=== PATIENT | male | born 1970 | race Caucasian/White ===

== ENCOUNTER → 2017-08-26 | Outpatient (CLI) | payer BC ==
[~2017-08-26] MED LIST: ANUSOL-HC25 MG RC; AUGMENTIN 875 M1 TAB PO; CELEXA20 MG PO; CLARITIN10 MG PO; COMBIVENT1 ARO IH; DAYPRO600 M1 PO; GLYBURIDE2.5 MG PO; LISINOPRIL10 MG PO; LOVASTATIN40 MG PO; MEDROL DOSEPAK4 MG PO; METFORMIN500 MG PO; ZITHROMAX Z PA250 MG PO; ZOFRAN4 MG PO
[2017-08-26 08:26] LABS: ALBUMIN 3.6 gm/dl (3.1-4.5); ALKALINE PHOSPHATASE 98 U/L (45-117); BUN 19 mg/dl (7-24); CHLORIDE 105 mmol/L (98-107); CHOLESTEROL 189 mg/dL (<200); CREATININE 0.93 mg/dL (0.70-1.30); HDL CHOLESTEROL 31 mg/dl (40-60); LDL CHOLESTEROL 108 mg/dL (9-159); POTASSIUM 4.7 mmol/L (3.5-5.1); SGOT/AST 13 IU/L (3-35); SGPT/ALT 32 U/L (12-78); SODIUM 136 mmol/L (136-145); TOTAL PROTEIN 7.4 gm/dL (6.4-8.2); TRIGLYCERIDES 250 mg/dl (<150); VLDL CHOLESTEROL 50 mg/dL (6-40)
== END | disposition home or self-care (01) ==
LOC: LAB 07:25
DX: I10 Essential (primary) hypertension (principal); E11.9 Type 2 diabetes mellitus without complications; E78.00 Pure hypercholesterolemia, unspecified

== ENCOUNTER → 2018-05-06 | Outpatient (CLI) | payer BC ==
[~2018-05-06] MED LIST changes: +MOBIC7.5 MG PO
[2018-05-06 18:43] LABS: HEMATOCRIT 42.9 % (42.0-52.0); HEMOGLOBIN 14.1 g/dl (14.0-18.0); MEAN CELL VOLUME 91.3 fl (80.0-94.0); MEAN CORPUSCULAR HGB CONC 32.9 g/dl (33.0-37.0); MEAN PLATELET VOLUME 8.7 fl (9.6-12.3); RED BLOOD COUNT 4.7 10*6/uL (4.50-5.90); RED CELL DISTRI WIDTH 13.8 % (0-14.5); WHITE BLOOD COUNT 15.6 10*3/uL (4.8-10.8)
[2018-05-06 19:13] LABS: ALBUMIN 3.4 gm/dl (3.1-4.5); ALKALINE PHOSPHATASE 94 U/L (45-117); BUN 36 mg/dl (7-24); CHLORIDE 106 mmol/L (98-107); CREATININE 1.04 mg/dL (0.70-1.30); FREE T4 0.94 ng/dl (0.76-1.46); SGOT/AST 17 IU/L (3-35); SGPT/ALT 30 U/L (12-78); SODIUM 136 mmol/L (136-145); THYROXINE (T4) TOTAL 8.6 ug/dl (4.5-12.1); TOTAL PROTEIN 6.9 gm/dL (6.4-8.2)
== END | disposition home or self-care (01) ==
LOC: LAB 18:15
PROVIDERS: Internal Medicine
DX: E11.9 Type 2 diabetes mellitus without complications (principal); K62.5 Hemorrhage of anus and rectum; I49.9 Cardiac arrhythmia, unspecified

== ENCOUNTER → 2018-10-07 | Outpatient (CLI) | payer BC | END | disposition home or self-care (01) | LOC: MRI 14:00 | DX: M16.0 Bilateral primary osteoarthritis of hip (principal); S73.101A Unspecified sprain of right hip, initial encounter; S73.102A Unspecified sprain of left hip, initial encounter; R10.30 Lower abdominal pain, unspecified; E11.9 Type 2 diabetes mellitus without complications; I10 Essential (primary) hypertension; X58.XXXA Exposure to other specified factors, initial encounter; Y93.89 Activity, other specified; Y92.89 Other specified places as the place of occurrence of the external cause; Y99.8 Other external cause status ==

== ENCOUNTER 2018-11-13 10:30 | Emergency (ER) | payer BC ==
[~2018-11-13] VITALS: Ht 180.3 cm; Wt 121.6 kg
--- NOTE | ~2018-11-13 | EKG ---
[place], [place] ELECTROCARDIOGRAM REPORT NAME: NETO GALLARDO UNIT #: [id number] ROOM: DOCTOR: EPIPHANY DRAFT REPORT BIRTHDATE: [birth year] [facility] Test Date: 2018-11-13 Test Time: 10:51:19 Pat Name: NETO GALLARDO Department: Room: Gender: Forging Machine Hand: Jayla Snell : 1970 Requested By: ABBIE LAL Order Number: [id number] Reading MD: Daniel Armstrong MD Measurements Intervals [place] Rate: 81 P: 41 [place]: 182 QRS: 78 QRSD: 90 T: 33 QT: 354 QTc: 411 Interpretive Statements Sinus rhythm No previous ECG available for comparison Electronically Signed On 11-16-2018 8:21:33 PDT by Daniel Armstrong MD CM:EKGRPT:ELECTROCARDIOGRAM REPORT [id number] ABBIE ZHAO DRAFT REPORT ABBIE LAL MD
--- NOTE | ~2018-11-13 | EKG ---
[place], [place] ELECTROCARDIOGRAM REPORT NAME: NETO GALLARDO UNIT #: [id number] ROOM: DOCTOR: EPIPHANY DRAFT REPORT BIRTHDATE: [birth year] [facility] Test Date: 2018-11-13 Test Time: 13:19:22 Pat Name: NETO GALLARDO Department: Room: Gender: Hazmat Cdl Driver: Jayla Snell : 1970 Requested By: ABBIE LAL Order Number: [id number] Reading MD: Daniel Armstrong MD Measurements Intervals [place] Rate: 74 P: 39 OK: 190 QRS: 76 QRSD: 94 T: 15 QT: 360 QTc: 400 Interpretive Statements Sinus rhythm No previous ECG available for comparison Electronically Signed On 11-16-2018 8:21:45 PDT by Daniel Armstrong MD CM:EKGRPT:ELECTROCARDIOGRAM REPORT 1319 [id number] ABBIE ZHAO DRAFT REPORT ABBIE LAL MD
[2018-11-13 11:06] LABS: BASO # 0.1 10*3/uL (0.0-0.1); BASO % 0.5 % (0.0-1.0); EOS # 1.1 10*3/uL (0.0-0.4); EOS % 7.8 % (1.0-4.0); HEMATOCRIT 44.5 % (42.0-52.0); HEMOGLOBIN 14.5 g/dl (14.0-18.0); LYMPH # 3.5 10*3/uL (1.3-4.4); LYMPH % 26.1 % (27.0-41.0); MEAN CELL VOLUME 91.2 fl (80.0-94.0); MEAN CORPUSCULAR HGB 29.7 pg (27.0-31.0); MEAN CORPUSCULAR HGB CONC 32.6 g/dl (33.0-37.0); MEAN PLATELET VOLUME 8.9 fl (9.6-12.3); MONO # 0.6 10*3/uL (0.1-1.0); MONO % 4.2 % (3.0-9.0); NEUT # 8.2 10*3/uL (2.3-7.9); NEUT % 60.9 % (47.0-73.0); PLATELET COUNT AUTOMATED 298 10*3/uL (130-400); RED BLOOD COUNT 4.88 10*6/uL (4.50-5.90); RED CELL DISTRI WIDTH 13.3 % (0-14.5); WHITE BLOOD COUNT 13.5 10*3/uL (4.8-10.8)
[2018-11-13 11:13] LABS: ACT PARTIAL THROMBO TIME 24.6 SECONDS (20.8-31.5)
[2018-11-13 11:31] LABS: ALBUMIN 3.5 gm/dl (3.1-4.5); ALKALINE PHOSPHATASE 93 U/L (45-117); BUN 28 mg/dl (7-24); CHLORIDE 106 mmol/L (98-107); CREATININE 1.03 mg/dL (0.70-1.30); SGOT/AST 22 IU/L (3-35); SGPT/ALT 27 U/L (12-78); SODIUM 138 mmol/L (136-145); TOTAL PROTEIN 7.1 gm/dL (6.4-8.2)
[2018-11-13 11:33] LABS: POTASSIUM 4.5 mmol/L (3.5-5.1); TROPONIN I < 0.015 ng/ml (<0.045)
== END 2018-11-13 13:45 | disposition home or self-care (01) ==
LOC: ED 10:30
PROVIDERS: Emergency Medicine
DX: M46.82 Other specified inflammatory spondylopathies, cervical region (principal); R07.89 Other chest pain; E11.65 Type 2 diabetes mellitus with hyperglycemia; M79.602 Pain in left arm; M79.601 Pain in right arm; E66.9 Obesity, unspecified; F17.210 Nicotine dependence, cigarettes, uncomplicated; Z79.899 Other long term (current) drug therapy

== ENCOUNTER 2019-10-18 09:05 | Inpatient (IN) | payer BC ==
[~2019-10-18] VITALS: Ht 180.3 cm; Wt 112.7 kg
[~2019-10-18 09:05] MED LIST changes: -LISINOPRIL10 MG PO; +LISINOPRIL20 MG PO
[2019-10-18 09:10] VITALS: BP 126/65
[2019-10-18 11:17] LABS: BASO # 0.1 10*3/uL (0.0-0.1); BASO % 0.5 % (0.0-1.0); EOS # 0.5 10*3/uL (0.0-0.4); EOS % 4.9 % (1.0-4.0); HEMATOCRIT 43.2 % (42.0-52.0); HEMOGLOBIN 14.1 g/dl (14.0-18.0); LYMPH # 2.7 10*3/uL (1.3-4.4); LYMPH % 24.7 % (27.0-41.0); MEAN CELL VOLUME 91.5 fl (80.0-94.0); MEAN CORPUSCULAR HGB 29.9 pg (27.0-31.0); MEAN CORPUSCULAR HGB CONC 32.6 g/dl (33.0-37.0); MEAN PLATELET VOLUME 8.5 fl (9.6-12.3); MONO # 0.6 10*3/uL (0.1-1.0); MONO % 5.6 % (3.0-9.0); NEUT % 63.8 % (47.0-73.0); PLATELET COUNT AUTOMATED 295 10*3/uL (130-400); RED BLOOD COUNT 4.72 10*6/uL (4.50-5.90); RED CELL DISTRI WIDTH 13.7 % (0-14.5)
[2019-10-18 11:30] LABS: ACT PARTIAL THROMBO TIME 25.2 SECONDS (20.0-32.1)
[2019-10-18 11:39] LABS: ALBUMIN 3.4 gm/dl (3.1-4.5); ALKALINE PHOSPHATASE 71 U/L (45-117); BUN 14 mg/dl (7-24); CHLORIDE 109 mmol/L (98-107); CREATININE 0.68 mg/dL (0.70-1.30); LIPASE 106 U/L (73-393); POTASSIUM 3.9 mmol/L (3.5-5.1); SGOT/AST 7 IU/L (3-35); SGPT/ALT 28 U/L (12-78); SODIUM 139 mmol/L (136-145); TOTAL PROTEIN 6.5 gm/dL (6.4-8.2); TROPONIN I < 0.015 ng/ml (<0.045)
[2019-10-18] MEDS ORDERED: OZEMPIC0.25 MG/01 SQ (15:34)
[2019-10-18 15:45] VITALS: BP 117/58
--- NOTE | 2019-10-18 15:45 | NUR ---
Time: 1544 A 48 year old MALE admitted to 5E under services of HAY MCWILLIAMS DO, Pt. arrived via bed from ER. Chief complaint: COUGH, SPUTUM. FUENTES WYATT
[2019-10-18 16:00] VITALS: BP 117/58
--- NOTE | 2019-10-18 16:07 | NUR ---
OFFICE STAFF WAS NOTIFIED OF DR. HIGH CONSULT. RESPONSE OF NOTIFICATION WAS OK I WILL GIVE THIS TO HER TOMORROW. FUENTES WYATT
--- NOTE | 2019-10-18 16:38 | NUR ---
PHYSICIAN WAS NOTIFIED OF DR. SANYA PLATT. RESPONSE OF NOTIFICATION WAS OK THANK YOU. FUENTES WYATT
--- NOTE | 2019-10-18 16:43 | NUR ---
PHYSICIAN WAS NOTIFIED OF DR. WELLS CONSULT. RESPONSE OF NOTIFICATION WAS PUT HIM ON THE SCHEDULE FOR EGD Friday10/20/19 NPO AFTER MIDNIGHT TOMORROW. FUENTES WYATT
--- NOTE | 2019-10-18 19:00 | NUR ---
ASSUMED CARE FOR THIS PT AT THIS TIME. DENIES PAIN. C/O OCONNOR. PT WEARING HOME CPAP. CALL LIGHT IN REACH.
[2019-10-18 20:00] VITALS: BP 110/52
[2019-10-19] VITALS: BP 105/62
--- NOTE | 2019-10-19 02:29 | NUR ---
PT RESTING QUIETLY IN BED W/EYES CLOSED. CALL LIGHT IN REACH.
[2019-10-19 06:37] LABS: BASO % 0.2 % (0.0-1.0); EOS % 0.2 % (1.0-4.0); HEMATOCRIT 43.8 % (42.0-52.0); HEMOGLOBIN 14.1 g/dl (14.0-18.0); LYMPH # 1.9 10*3/uL (1.3-4.4); MEAN CELL VOLUME 91.8 fl (80.0-94.0); MEAN CORPUSCULAR HGB 29.6 pg (27.0-31.0); MEAN CORPUSCULAR HGB CONC 32.2 g/dl (33.0-37.0); MEAN PLATELET VOLUME 8.8 fl (9.6-12.3); MONO # 0.4 10*3/uL (0.1-1.0); MONO % 3.7 % (3.0-9.0); NEUT # 8.7 10*3/uL (2.3-7.9); NEUT % 78.4 % (47.0-73.0); PLATELET COUNT AUTOMATED 305 10*3/uL (130-400); RED BLOOD COUNT 4.77 10*6/uL (4.50-5.90); RED CELL DISTRI WIDTH 13.6 % (0-14.5); WHITE BLOOD COUNT 11.1 10*3/uL (4.8-10.8)
[2019-10-19 07:01] LABS: ALBUMIN 3.4 gm/dl (3.1-4.5); BUN 15 mg/dl (7-24); CHLORIDE 110 mmol/L (98-107); CHOLESTEROL 138 mg/dL (<200); CREATININE 0.86 mg/dL (0.70-1.30); PHOSPHOROUS 3.2 mg/dL (2.5-4.9); POTASSIUM 4.6 mmol/L (3.5-5.1); SGOT/AST 7 IU/L (3-35); SGPT/ALT 24 U/L (12-78); SODIUM 141 mmol/L (136-145); TOTAL PROTEIN 6.6 gm/dL (6.4-8.2); TRIGLYCERIDES 73 mg/dl (<150); VLDL CHOLESTEROL 15 mg/dL (6-40)
[2019-10-19 07:08] LABS: ALKALINE PHOSPHATASE 70 U/L (45-117); FREE T4 1.13 ng/dl (0.76-1.46); HDL CHOLESTEROL 35 mg/dl (40-60); LDL CHOLESTEROL 88 mg/dL (9-159); THYROID STIM HORMONE (HS) 0.517 uIU/ml (0.358-4.75)
[2019-10-19 08:00] VITALS: BP 118/72
--- NOTE | 2019-10-19 08:00 | NUR ---
PT RESTING IN BED. RESP-EASY AND REGULAR. NO C/O AT THIS TIME. CALL LIGHT IN REACH. SEE SHIFT ASSESSMENT.
[2019-10-19 08:07] LABS: VITAMIN D, 25-HYDROXY 21.2 ng/mL (30-100)
--- NOTE | 2019-10-19 08:26 | NUR ---
SPEECH PATHOLOGY Nursing screen complete. Speech services are not indicated at this time however this dept. will be available if future needs arise. EUSEBIO GARCIA MS[facility]-VENEER JOINTER RETURNER
--- NOTE | 2019-10-19 09:50 | NUR ---
TOLERATED ROUTINE MED WITH NO PROBLEM. NO C/O AT THIS TIME. CALL LIGHT IN REACH.
--- NOTE | 2019-10-19 11:30 | NUR ---
PT RESTING IN BED. BSG-181, SEE EMAR. CALL LIGHT IN REACH.
--- NOTE | 2019-10-19 11:55 | NUR ---
Health Information Director in to talk to patient. Patient states lives at HOME with FRIEND. There are FEW steps in the home. Physician: SHANON WAY Pharmacy: [facility] [place] health services: NONE Patient's level of ADLs: INDEPENDENT Patient has working utilities: YES DME: NONE Follow-up physician's appointment after d/c: WILL BE MADE BY HOSPITALIST NURSE DIRECTOR ON DISCHARGE Does patient want to access PORTAL?: NO Discharge plan PT LIVES AT HOME WITH A FRIEND DUE TO RECENT SEPERATION FROM . PT IS VERY UPSET AND CRYING OVER SEPERATION. STATES HE WILL RETURN TO FRIENDS HOUSE WHEN MEDICALLY STABLE AND WILL HAVE NO NEEDS ON DISCHARGE. WILL CONTINUE TO FOLLOW. PT STATES HE WILL HAVE A RIDE HOME. MARYLU CARRILLO
[2019-10-19 16:00] VITALS: BP 129/71
--- NOTE | 2019-10-19 16:10 | NUR ---
PT RESTING IN RECLINER CHAIR. RESP-EASY AND REGULAR. VISITOR AT HIS SIDE. TOLERATED ROUTINE IV MEDICATION. CALL LIGHT IN REACH.
[2019-10-19 20:00] VITALS: BP 135/61
[2019-10-20] VITALS: BP 136/64
[2019-10-20 08:00] VITALS: BP 146/80
--- NOTE | 2019-10-20 08:30 | NUR ---
VITAL SIGN STABLE. SARITA. A&O X3. SKIN PINK, WARM, DRY, INTACT. POSITIVE PEDAL PULSE. NO COMPLAINTS OF PAIN AT THIS TIME. SKIN TURGOR NON-TENTED. HR 68 REGULAR, STRONG. CAPILLARY REFILL <3 SECONDS. HEART SOUNDS NORMAL. SPO2 100% R/A LUNGS CLEAR THROUGHOUT. ABDOMEN SOFT, NON-TENDER, NON-DISTENDED. BOWEL SOUND ACTIVE X4. IV SITE IN THE LEFT AC IS INTACT WITH NO S/S OF INFECTION. PATIENTS DAUGHTER IS AT THE BEDSIDE. PATIENT IS PLEASANT AND COOPERATIVE. WILL CONTIUNE TO ASSESS. ZULEYKA ANTUNEZ [facility]
--- NOTE | 2019-10-20 08:35 | NUR ---
IN TO SEE PATIENT.
--- NOTE | 2019-10-20 10:55 | NUR ---
PATIENT LAYING IN BED WATCHING TV. WILL CONTINUE TO MONITOR. ZULEYKA ANTUNEZ [facility]
[2019-10-20 11:25] VITALS: BP 132/72
--- NOTE | 2019-10-20 12:45 | NUR ---
PATIENT OFF FLOOR FOR SCHEDULED EGD.
[2019-10-20 14:08] VITALS: BP 113/48
[2019-10-20 14:23] VITALS: BP 106/50
[2019-10-20] MEDS ORDERED: ZITHROMAX500 MG PO (14:37)
[2019-10-20] MEDS ORDERED: OMNICEF300 MG PO (14:37)
[2019-10-20 14:38] VITALS: BP 102/51
--- NOTE | 2019-10-20 14:40 | NUR ---
PATIENT RETURNED TO ROOM.
[2019-10-20] MEDS ORDERED: PROTONIX TR40 M1 PO (14:41)
[2019-10-20] MEDS ORDERED: DULOXETINE HCL30 MG PO (14:41)
[2019-10-20] MEDS ORDERED: CYCLOBENZAPRINE5 M3 PO (14:43)
[2019-10-20] MEDS ORDERED: GAVISCON ES TA1 EACH PO (14:43)
--- NOTE | 2019-10-20 14:52 | NUR ---
PT CONTINUES TO DENY NEEDS AT HOME. WILL CONTINUE TO FOLLOW.
--- NOTE | 2019-10-20 15:29 | NUR ---
Discharge instructions reviewed with patient/family. Patient receptive and verbalizes understanding. Follow-up care arranged. Written instructions given to patient/family. RABIA SANDOVAL.
== END 2019-10-20 15:29 | disposition home or self-care (01) | DRG 190 ==
LOC: ED 09:05 → 5E 14:57 → EDHOLD 14:57 → 5E 15:37
PROVIDERS: Physician Assistant; Registered Nurse; ADMIT Internal Medicine
PROC: 0DB78ZX Excision of Stomach, Pylorus, Via Natural or Artificial Opening Endoscopic, Diagnostic (ICD-10-PCS; principal; 2019-10-20)
DX: J44.0 Chronic obstructive pulmonary disease with (acute) lower respiratory infection (principal); J18.9 Pneumonia, unspecified organism; E44.0 Moderate protein-calorie malnutrition; J44.1 Chronic obstructive pulmonary disease with (acute) exacerbation; I10 Essential (primary) hypertension; E11.65 Type 2 diabetes mellitus with hyperglycemia; J20.9 Acute bronchitis, unspecified; G47.33 Obstructive sleep apnea (adult) (pediatric); Z96.649 Presence of unspecified artificial hip joint; F43.23 Adjustment disorder with mixed anxiety and depressed mood; R59.0 Localized enlarged lymph nodes; J84.10 Pulmonary fibrosis, unspecified; E66.9 Obesity, unspecified; E78.5 Hyperlipidemia, unspecified; M19.90 Unspecified osteoarthritis, unspecified site; E87.8 Other disorders of electrolyte and fluid balance, not elsewhere classified; E78.00 Pure hypercholesterolemia, unspecified; K44.9 Diaphragmatic hernia without obstruction or gangrene; K29.70 Gastritis, unspecified, without bleeding; K22.8 Other specified diseases of esophagus; Z87.891 Personal history of nicotine dependence; Z82.49 Family history of ischemic heart disease and other diseases of the circulatory system; Z80.8 Family history of malignant neoplasm of other organs or systems; Z79.899 Other long term (current) drug therapy; Z98.52 Vasectomy status; Z71.6 Tobacco abuse counseling; Z68.34 Body mass index [BMI] 34.0-34.9, adult

== ENCOUNTER 2020-09-23 16:17 | Emergency (ER) | payer BC ==
[~2020-09-23 16:17] MED LIST changes: +CYCLOBENZAPRINE5 M3 PO; +DULOXETINE HCL30 MG PO; +GAVISCON ES TA1 EACH PO; +OMNICEF300 MG PO; +OZEMPIC0.25 MG/01 SQ; +PROTONIX TR40 M1 PO; +ZITHROMAX500 MG PO
== END 2020-09-23 16:52 | disposition left against medical advice (07) ==
LOC: ED 16:17
DX: S90.851A Superficial foreign body, right foot, initial encounter (principal); Z53.21 Procedure and treatment not carried out due to patient leaving prior to being seen by health care provider; W45.8XXA Other foreign body or object entering through skin, initial encounter; Y93.89 Activity, other specified; Y92.89 Other specified places as the place of occurrence of the external cause; Y99.8 Other external cause status

== ENCOUNTER 2020-11-02 13:08 | Emergency (ER) | payer BC ==
[~2020-11-02] VITALS: Ht 175.2 cm; Wt 108.9 kg
== END 2020-11-02 15:45 | disposition home or self-care (01) ==
LOC: ED 13:08
DX: I83.899 Varicose veins of unspecified lower extremity with other complications (principal); J44.9 Chronic obstructive pulmonary disease, unspecified; F32.9 Major depressive disorder, single episode, unspecified; E11.9 Type 2 diabetes mellitus without complications; I10 Essential (primary) hypertension; G47.33 Obstructive sleep apnea (adult) (pediatric); E78.00 Pure hypercholesterolemia, unspecified; Z98.890 Other specified postprocedural states; Z96.643 Presence of artificial hip joint, bilateral; Z79.899 Other long term (current) drug therapy; Z79.84 Long term (current) use of oral hypoglycemic drugs

== ENCOUNTER 2021-04-27 22:45 | Inpatient (IN) | payer BC ==
[~2021-04-27] VITALS: Ht 182.8 cm; Wt 113.4 kg
[2021-04-27 23:01] LABS: MEAN CELL VOLUME 90.4 fl (80.0-94.0); MEAN CORPUSCULAR HGB 30.1 pg (27.0-31.0); MEAN CORPUSCULAR HGB CONC 33.3 g/dl (33.0-37.0); PLATELET COUNT AUTOMATED 285 10*3/uL (130-400); RED BLOOD COUNT 4.98 10*6/uL (4.50-5.90); RED CELL DISTRI WIDTH 13.3 % (0-14.5); WHITE BLOOD COUNT 20.3 10*3/uL (4.8-10.8)
[2021-04-27 23:08] VITALS: BP 111/64
[2021-04-27 23:17] LABS: ALBUMIN 3.5 gm/dl (3.1-4.5); ALKALINE PHOSPHATASE 112 U/L (45-117); BUN 24 mg/dl (7-24); CHLORIDE 110 mmol/L (98-107); CREATININE 1.05 mg/dL (0.70-1.30); SGOT/AST 17 IU/L (3-35); SGPT/ALT 34 U/L (12-78); SODIUM 141 mmol/L (136-145)
[2021-04-27 23:20] LABS: TROPONIN I < 0.015 ng/ml (<0.045)
[2021-04-27 23:27] LABS: PLATELET SUFFICIENCY NORMAL (NORMAL); TOTAL CELLS COUNTED 100 #CELLS
[2021-04-28 00:16] VITALS: BP 118/65
[2021-04-28 01:03] VITALS: BP 106/73
[2021-04-28 04:15] VITALS: BP 125/74
[2021-04-28 04:55] VITALS: BP 124/70
[2021-04-28 06:07] VITALS: BP 131/70
== END 2021-04-28 07:19 | disposition left against medical advice (07) | DRG 871 ==
LOC: ED 22:45 → EDHOLD 04-28 05:01
PROVIDERS: Emergency Medicine; ADMIT Family Medicine; ATTEND Family Medicine
DX: A41.9 Sepsis, unspecified organism (principal); J18.9 Pneumonia, unspecified organism; J44.1 Chronic obstructive pulmonary disease with (acute) exacerbation; E44.1 Mild protein-calorie malnutrition; Z68.45 Body mass index [BMI] 70 or greater, adult; J44.0 Chronic obstructive pulmonary disease with (acute) lower respiratory infection; Z96.649 Presence of unspecified artificial hip joint; D72.829 Elevated white blood cell count, unspecified; E78.5 Hyperlipidemia, unspecified; G47.33 Obstructive sleep apnea (adult) (pediatric); F41.1 Generalized anxiety disorder; I10 Essential (primary) hypertension; F32.9 Major depressive disorder, single episode, unspecified; M47.892 Other spondylosis, cervical region; E87.8 Other disorders of electrolyte and fluid balance, not elsewhere classified; E11.65 Type 2 diabetes mellitus with hyperglycemia; F17.210 Nicotine dependence, cigarettes, uncomplicated; Z82.49 Family history of ischemic heart disease and other diseases of the circulatory system; Z71.6 Tobacco abuse counseling; Z53.29 Procedure and treatment not carried out because of patient's decision for other reasons

== ENCOUNTER → 2022-02-18 | Day surgery (SDC) | payer BC ==
[~2022-02-18] VITALS: Ht 175.2 cm; Wt 115.7 kg
[~2022-02-18] MED LIST changes: +RYBELSUS7 MG PO
[2022-02-18 09:28] VITALS: BP 140/68
[2022-02-18 11:10] VITALS: BP 116/65
[2022-02-18 11:25] VITALS: BP 120/69
[2022-02-18 11:40] VITALS: BP 116/71
== END | disposition home or self-care (01) ==
LOC: SDC 02-14 08:00
PROVIDERS: ATTEND Surgery
DX: Z12.11 Encounter for screening for malignant neoplasm of colon (principal); K57.30 Diverticulosis of large intestine without perforation or abscess without bleeding; Z86.010 Personal history of colon polyps; I10 Essential (primary) hypertension; E11.9 Type 2 diabetes mellitus without complications; I48.91 Unspecified atrial fibrillation; F17.210 Nicotine dependence, cigarettes, uncomplicated; F32.9 Major depressive disorder, single episode, unspecified; E78.00 Pure hypercholesterolemia, unspecified; Z79.899 Other long term (current) drug therapy

== ENCOUNTER 2023-02-18 13:33 | Emergency (ER) | payer OTHER, BC ==
[~2023-02-18] VITALS: Wt 106.6 kg
== END 2023-02-18 17:21 | disposition home or self-care (01) ==
LOC: ED 13:33
DX: S61.210A Laceration without foreign body of right index finger without damage to nail, initial encounter (principal); F17.200 Nicotine dependence, unspecified, uncomplicated; Z79.899 Other long term (current) drug therapy; W26.0XXA Contact with knife, initial encounter; Y93.89 Activity, other specified; Y92.69 Other specified industrial and construction area as the place of occurrence of the external cause; Y99.0 Civilian activity done for income or pay